=== PATIENT | male | born 1990 | race Caucasian/White ===

== ENCOUNTER 2017-02-24 13:16 | Emergency (ER) | payer BC ==
[2017-02-24 15:18] VITALS: BP 114/65
--- NOTE | 2017-02-24 15:33 | UC ---
Ear Complaint HPI - HPI Summary HPI Summary: Patient presents to the with CC of left ear pain and serous drainage from the area since last evening. He denies swimming or bathtubs. Denies previous ear infections. He denies sinus pressure, congestion or cough. Denies fevers sweats and chills. Otherwise healthy. He first noticed the pain last evening with mild drainage. Today with less pain but worsening drainage from the area. - History of Current Complaint Chief Complaint: UCEar Stated Complaint: EAR PAIN Time Seen by Provider: 02/24/17 15:05 Hx Obtained From: Patient Onset/Duration: Sudden Onset Severity Initially: Moderate Severity Currently: Moderate Pain Intensity: 4 Pain Scale Used: 0-10 Numeric Aggravating Factors: Nothing Alleviating Factors: Nothing Associated Signs/Symptoms: Positive: Hearing Loss - Allergies/Home Medications Allergies/Adverse Reactions: Allergies Allergy/AdvReac Type Severity Reaction Status Date / Time No Known Allergies Allergy Verified 02/24/17 13:43 PMH/Surg Hx/FS Hx/Imm Hx Previously Healthy: Yes - Surgical History Surgical History: None - Family History Known Family History: Positive: Unknown - Social History Occupation: Employed Full-time Lives: With Family Alcohol Use: Occasionally Substance Use Type: None Smoking Status (MU): Light Every Day Tobacco Smoker Type: Smokeless Tobacco Amount Used/How Often: 2 cig/day Have You Smoked in the Last Year: Yes Review of Systems Constitutional: Negative Skin: Negative Eyes: Negative ENT: Ear Ache Respiratory: Negative Cardiovascular: Negative Motor: Negative Neurovascular: Negative Neurological: Negative Is Patient Immunocompromised?: No All Other Systems Reviewed And Are Negative: Yes Physical Exam Triage Information Reviewed: Yes Appearance: Well-Appearing, Well-Nourished Vital Signs: Initial Vital Signs Temp 97.9 F 02/24/17 13:43 Pulse 74 02/24/17 13:43 Resp 16 02/24/17 13:43 BP 114/67 02/24/17 13:43 Pulse Ox 100 02/24/17 13:43 Eye Exam: Normal Eyes: Positive: Conjunctiva Clear ENT: Positive: Pharynx normal, TM red - serous fluid drainage from L ear. Negative: Pharyngeal erythema, Nasal congestion Respiratory Exam: Normal Respiratory: Positive: Chest non-tender Cardiovascular Exam: Normal Cardiovascular: Positive: RRR Musculoskeletal Exam: Normal Musculoskeletal: Positive: Strength Intact Neurological Exam: Normal Neurological: Positive: Alert Psychological: Positive: Normal Response To Family Skin Exam: Normal Ear Complaint Course/Dx - Course Course Of Treatment: Patient presents with ear pain. On physical exam, serous fluid drainage from L ear. No other symptoms. Ciprodex given BID x 7 days. Patient is OK with discharge. - Differential Dx/Diagnosis Differential Diagnosis/HQI/PQRI: Cerumen Impaction, Foreign Body, Otitis Externa , Otitis Media Provider Diagnoses: Otitis Externa Discharge - Discharge Plan Condition: Stable Disposition: HOME Prescriptions: Ciproflox/Dexameth OTIC.SUSP* [Ciprodex OTIC.SUSP*] 4 drop .SEE ORDER BID #1 btl Patient Education Materials: Serous Otitis Media (ED) Referrals: No Primary Care Phys,NOPCP [Primary Care Provider] - Additional Instructions: Take abx as prescribed Ibuprofen 600mg three times daily for pain Return to ED if any symptoms become worse
== END 2017-02-24 15:31 | disposition home or self-care (01) ==
LOC: UCEAST 13:16
DX: H60.92 Unspecified otitis externa, left ear (principal); F17.210 Nicotine dependence, cigarettes, uncomplicated
CPT/HCPCS: 99212; G0463

== ENCOUNTER 2017-12-17 12:21 | Emergency (ER) | payer BC ==
[2017-12-17 12:31] VITALS: BP 133/73
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
== END 2017-12-17 14:25 | disposition home or self-care (01) ==
LOC: UCEAST 12:21
DX: S70.01XA Contusion of right hip, initial encounter (principal); S30.1XXA Contusion of abdominal wall, initial encounter; V86.56XA Driver of dirt bike or motor/cross bike injured in nontraffic accident, initial encounter; F17.210 Nicotine dependence, cigarettes, uncomplicated; Y93.89 Activity, other specified; Y92.9 Unspecified place or not applicable
CPT/HCPCS: 74176; 81003; 87086; 99212; G0463

== ENCOUNTER 2018-02-12 07:39 | Emergency (ER) | payer SELFPAY ==
[2018-02-12 08:00] VITALS: BP 155/86
[2018-02-12] MEDS ORDERED: Ondansetron ODT TAB* 4 MG PO ONE (08:47)
--- NOTE | 2018-02-12 08:50 | UC ---
Abdominal Pain Male HPI - HPI Summary HPI Summary: Patient presents to urgent care for evaluation of nausea and mild lower belly pain. Patient states for approximately 36 hours he's had episodes of nausea and vomiting. Nonbilious, nonbloody. Patient states last emesis was this morning. Patient states he feels hot and sweaty with before he vomits but not otherwise. Patient states he also has not had a bowel movement in 2 or 3 days ago he does not feel constipated with a need to defecate. Patient had some toast yesterday that stayed down. Patient's had some water this morning. Last emesis was approximately at 6:30 AM. Patient denies any trauma. Patient denies any pain in his penis or testicles. No dysuria or hematuria. No fevers , chills, or rashes. No recent antibiotics. No travel. No sick contacts. The patient's medications reviewed this visit. - History of Current Complaint Chief Complaint: UCAbdominalPain Stated Complaint: ABD PAIN Time Seen by Provider: 02/12/18 08:33 Hx Obtained From: Patient Onset/Duration: Gradual Onset, Lasting Days Severity Initially: Mild Severity Currently: Mild Pain Intensity: 3 Pain Scale Used: 0-10 Numeric Location: Diffuse Radiates: No - Allergies/Home Medications Allergies/Adverse Reactions: Allergies Allergy/AdvReac Type Severity Reaction Status Date / Time No Known Allergies Allergy Verified 02/12/18 08:00 PMH/Surg Hx/FS Hx/Imm Hx Previously Healthy: Yes - Surgical History Surgical History: None - Family History Known Family History: Positive: Unknown Negative: Cardiac Disease, Hypertension, Diabetes - Social History Occupation: Employed Part-time Lives: With Family Alcohol Use: Occasionally Substance Use Type: Marijuana - occasional Smoking Status (MU): Light Every Day Tobacco Smoker Type: Cigarettes, Smokeless Tobacco Amount Used/How Often: 2 cig/day Have You Smoked in the Last Year: Yes Household Exposure Type: Cigarettes Review of Systems Constitutional: Negative Skin: Negative Gastrointestinal: Abdominal Pain, Vomiting, Other - decreased BM All Other Systems Reviewed And Are Negative: Yes Physical Exam - Summary Physical Exam Summary: Vital Signs Reviewed: Yes A+Ox3, no distress Eyes: Conjunctiva Clear, MADISYN. EOM intact and full ENT: Hearing grossly normal TM x 2 clear, mmoist, uvula midline, no exudate, no erythema Neck: Positive: Supple Respiratory: Positive: No respiratory distress, No accessory muscle use + CTA throughout no w/r Cardiovascular: RRR nl s1, s2 no m/r CBT <2 sec abd soft + BS slight decreased, no distension mild TTP LLQ no guarding, no rebound Musculoskeletal Exam: PENA x 4 without difficulty Strength Intact, ROM Intact Neurological: Positive: Alert, + sensation throughout Psychological: Positive: Normal Response To Family Skin: Positive: no rash, no ecchymosis Triage Information Reviewed: Yes Vital Signs: Initial Vital Signs Temp 97.9 F 02/12/18 07:55 Pulse 56 02/12/18 07:55 Resp 18 02/12/18 07:55 BP 155/86 02/12/18 07:55 Pulse Ox 100 02/12/18 07:55 Diagnostics - Radiology No standard instances Radiology Interpretation Completed By: Radiologist - Attending Doctor: Angela Emerson ([id number]) Blower Insulator: Seth Escobar ([id number]) Slubber Machine Operator: NUANCE (NUANCE) Report Date: 02/12/2018 08:42:00 Report Status: Final Begin of Report Content Patient Name: JERRY DOMINGO Medical Record#: [id number] Ordering Physician: Angela Emerson MD Acct.#: [id number] : 1990 Age: 27 Sex: M Location: [facility] Exam Date: 02/12/1842 ADM Status: REG ER Order Information: ABDOMEN (COMPLETE) 2 VWS Accession Number: [id number] CPT: 87884 Indication: Lower abdominal pain. No bowel movement for 3 days. Bloating. Nausea and vomiting. Comparison: December 17, 2017 CT. Technique: Supine and upright views of the abdomen. Report: Negative for free intraperitoneal air. Small volume of stool at the ascending colon. Negative for dilated small or large bowel loops. No suspicious calcifications or mass effect. Unremarkable soft tissue contours. IMPRESSION: #. No abdominal pelvis pathologic process evident. < Electronically signed by Seth Escobar MD in OV> 02/12/18907 Dictated By: Seth Escobar MD Dictated Date/Time: 02/12/18907 Transcribed Date/Time: 906 Copy to: CC:Angela Emerson MD; No Primary Care Phys,NOPCP Imaging - [facility] Imaging - [facility] Imaging - [facility] [address] [address] ph ([phone]) ph ([phone]) ph Abd Pain Male Course/Dx - Course Course Of Treatment: Pt presents to reporting 36 hours or intermittent nausea and vomiting. Pt with mild abdominal pain. On exam VSS. Pt with mild LLQ with direct palpation. No guarding, no rebound. Pt well hydrated. Will give zofran. Check urine and abd xray. If non concerning - will likely discharge home with note for work, zofran with strict return precautions. Pt's blood pressure elevated - recommend f/u with PCP - physician referral center provided - Differential Dx/Clinical Impression Provider Diagnoses: nausea, vomiting, abdominal pain Discharge - Sign-Out/Discharge Documenting (check all that apply): Post-Discharge Follow Up All imaging exams completed and their final reports reviewed: Yes - Discharge Plan Condition: Stable Disposition: HOME Prescriptions: Promethazine TAB* [Phenergan TAB*] 25 mg PO Q6H PRN #10 tab PRN Reason: Nausea Forms: *Work Release Referrals: [facility] [place] [facility] REFERRAL [Outside] No Primary Care Phys,NOPCP [Primary Care Provider] - Additional Instructions: You were seen in the urgent care center nausea, vomiting, and abdominal pain. Your xray and urine results were non concerning at this time. It was determined it is okay to go home today, however you must watch your symptoms very closely. You should go directly to the Emergency Department if your symptoms persist or worsen, if you experience severe increase in pain, shortness of breath, chest pain, headache, changes in vision, uncontrolled nausea, vomiting, fever, numbness, inability to walk, inability to eat or drink, or changes in behavior. -For the first 6 hours, eat and drink clears (water, carie cris, soup broth, jello, popsicles, Gatorade). If you tolerate this okay, add bland foods such as dry toast, scrambled eggs, crackers. Wait until you are feeling better for 24 hours before eating spicy food, acidic food, tomato based food, fried food. - Okay to take medication as prescribed for nausea - get plenty of rest - Okay to take Tylenol every 6 hours for pain - stay well hydrated - frequent sips of non-caffinated, non-alcoholic beverages. You have been given the contact information for the physician referral clinic - if you do not have a doctor, this office can help you establish with a primary doctor - Billing Disposition and Condition Condition: STABLE Disposition: Home
--- NOTE | 2018-02-12 09:11 | RAD ---
Indication: Lower abdominal pain. No bowel movement for 3 days. Bloating. Nausea and vomiting. Comparison: December 17, 2017 CT. Technique: Supine and upright views of the abdomen. Report: Negative for free intraperitoneal air. Small volume of stool at the ascending colon. Negative for dilated small or large bowel loops. No suspicious calcifications or mass effect. Unremarkable soft tissue contours. IMPRESSION: #. No abdominal pelvis pathologic process evident.
== END 2018-02-12 09:39 | disposition home or self-care (01) ==
LOC: UCEAST 07:39
DX: R11.2 Nausea with vomiting, unspecified (principal); R10.32 Left lower quadrant pain; F17.210 Nicotine dependence, cigarettes, uncomplicated; F17.290 Nicotine dependence, other tobacco product, uncomplicated
CPT/HCPCS: 74019; 81003; 99212; A9270-GY; G0463

== ENCOUNTER 2018-05-20 17:10 | Emergency (ER) | payer SELFPAY ==
[2018-05-20] MEDS ORDERED: Cephalexin CAP* 500 MG PO ONE (18:43)
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
[2018-05-20] MEDS ORDERED: Tetan/Diph/Pertus SYR(Tdap)* 0.5 ML SYR(BOOSTRIX) use SYR IM ONE ×2 (18:56→18:57)
[2018-05-20 19:04] VITALS: BP 113/94
== END 2018-05-20 19:02 | disposition home or self-care (01) ==
LOC: ED 17:10
DX: S81.812A Laceration without foreign body, left lower leg, initial encounter (principal); V29.9XXA Motorcycle rider (driver) (passenger) injured in unspecified traffic accident, initial encounter; Y92.9 Unspecified place or not applicable; Z23 Encounter for immunization; F17.210 Nicotine dependence, cigarettes, uncomplicated; S50.812A Abrasion of left forearm, initial encounter; S50.311A Abrasion of right elbow, initial encounter
CPT/HCPCS: 12002; 90471; 90715; 99282; A9270-GY